=== PATIENT | male | born 1975 | race African-American/Black ===

== ENCOUNTER 2016-09-12 22:36 | Emergency (ER) | payer SELFPAY ==
[2016-09-12] MEDS: KETOROLAC TROMETHAMINE 60 MG/2 ML VIAL IM ONE (23:00)
[2016-09-12] MEDS ORDERED: KETOROLAC TROMETHAMINE 60 MG/2 ML VIAL ONE (23:00)
--- NOTE | 2016-09-12 23:11 | ED Physician Documentation ---
General Adult - HISTORIAN Historian: patient - HPI Stated Complaint: Soreness to Chest Chief Complaint: General Adult Onset: days ago (3) Further Comments: yes (41 year old male patient presents with complaint of right sided chest wall pain which started 3 days ago. Patient denies injury, heavy lifting; no radiation, denies SOB or N/V; states pain is worse with cough. ) - ROS CONST: no problems EYES/ENT: none CVS/RESP: none GI/: none MS/SKIN/LYMPH: none NEURO/PSYCH: denies: headache - PAST HX Past History: none Other History: none Surgeries/Procedures: none Allergies/Adverse Reactions: Allergies Allergy/AdvReac Type Severity Reaction Status Date / Time acetaminophen [From Tylenol] Allergy Verified 09/12/16 22:58 Home Medications: Ambulatory Orders Medication Instructions Recorded NK [NK] 10/11/15 - SOCIAL HX Smoking History: cigarettes - FAMILY HX Family History: No - VITAL SIGNS Vital Signs: Vital Signs Temp Pulse Resp BP Pulse Ox 98.1 F 78 16 117/68 99 09/12/16 22:40 09/12/16 22:40 09/12/16 22:40 09/12/16 22:40 09/12/16 22:40 - REVIEWED ASSESSMENTS Nursing Assessment Reviewed: Yes Vitals Reviewed: Yes Progress - Progress Progress: Reassurance given, reviewed discharge instructions. verbalized understanding. ED Results Lab/Radiology - Orders Orders: ED Orders Category Date Time Status Ketorolac Tromethamine [Toradol] Med 09/12/16 23:00 Discontinued 60 mg .ROUTE .STK-MED ONE Ketorolac Tromethamine [Toradol] Med 09/12/16 23:00 Discontinued 60 mg IM NOW ONE General Adult Physical Exam - PHYSICAL EXAM GENERAL APPEARANCE: mild distress EENT: eye inspection normal, [facility] RESPIRATORY: no resp distress, breath sounds normal, other (chest wall tenderness right anterior, at pectoralis muscle) CVS: reg rate & rhythm, heart sounds normal, equal pulses, no murmur, no gallop , PMI nml, no JVD, no friction rub, 24 ABDOMEN: soft, no organomegaly, normal bowel sounds, no abdominal bruit, no distension BACK: normal inspection, no CVA tenderness SKIN: normal color, warm/dry, NR, INT, PAL, DR EXTREMITIES: non-tender, normal range of motion, no evidence of injury, no edema , J, [employer] HEAD NEURO: oriented X3, CN's nml as tested, motor nml, sensation nml, mood/affect nml Discharge Clincal Impression: Myalgia Home Medications: Ambulatory Orders NK [NK] 10/11/15 Condition: Stable Disposition: 01 HOME, SELF-CARE Decision to Admit: NO Decision Time: 23:13
[2016-09-12 23:12] VITALS: BP 120/75
== END 2016-09-12 23:11 | disposition home or self-care (01) ==
LOC: ED 22:36
DX: M79.1 Myalgia (principal)
CPT/HCPCS: 96372; 99283; J1885